=== PATIENT | male | born 1955 | race Caucasian/White ===

== ENCOUNTER 2018-04-30 15:20 | Emergency (ER) | payer MEDICARE, BC ==
--- NOTE | 2018-04-30 15:44 | EDM.PDOC ---
ED HPI GENERAL MEDICAL PROBLEM - General Chief Complaint: Abdominal Pain Stated Complaint: RIGHT SIDE PAIN Time Seen by Provider: 04/30/18 15:43 Source of Information: Reports: Patient History Limitations: Reports: No Limitations - History of Present Illness INITIAL COMMENTS - FREE TEXT/NARRATIVE: 62-year-old male presents to the ED with right lower quadrant abdominal pain. Patient states that he's had right obed-abdominal discomfort off and on for the last day and a half. No associated fever chills, nausea or vomiting. He did have one loose stool today. Pain radiates up towards the right back/flank. No blood noted. The last 2 hours the pain in the right lower quadrant has increased substantially. It's not bad enough to make him nauseated or vomit. In fact appetite is quite good he ate at about 1500 hrs. today. He has no feeling of need to void or defecate. He has a past history of kidney stones 2 on the right side. He has not noticed any blood in his urine today. Currently pain is rated as 5 out of 10. He appears uncomfortable. 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 Onset: Gradual (Over the last 48 hours with worsening of the pain in the last 2 hours.) Onset Date: 04/29/18 Duration: Hour(s): (Pain is been much more intense over the last 2 hours right lower quadrant of the abdomen.) Location: Reports: Abdomen (Right lower quadrant rating up towards his right flank.) Quality: Reports: Ache, Other (Pain was colicky in nature and mild prior to the last 2 hours were is much more constant and severe.) Severity: Moderate Improves with: Reports: None (Currently rates the pain is 5 out of 10.) Worsens with: Reports: None Context: Denies: Activity, Exercise, Lifting, Sick Contact, Trauma Associated Symptoms: Reports: Other. 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 After him with a dense right-sided hemiparesis. Cause was never identified.) Psychiatric History: Reports: Anxiety, Depression - Past Surgical History GI Surgical History: Reports: Cholecystectomy Neurological Surgical History: Reports: Lumbar Spine Social & Family History - Tobacco Use Smoking Status *Q: Never Smoker - Living Situation & Occupation Living situation: Reports: , Other Occupation: Employed ED ROS GENERAL - Review of Systems Review Of Systems: See Below Constitutional: Denies: Fever, Chills, Malaise, Weakness, Fatigue, Decreased Appetite, Weight Loss HEENT: Reports: Glasses Respiratory: Reports: No Symptoms Cardiovascular: Reports: No Symptoms Endocrine: Reports: No Symptoms GI/Abdominal: Reports: Abdominal Pain, Diarrhea (See history of present illness one loose diarrhea stool today.) : Reports: No Symptoms Musculoskeletal: Reports: Back Pain, Joint Pain Skin: Reports: No Symptoms (Right knee pain at times) Neurological: Reports: Difficulty Walking (Chronically due to right-sided hemiparesis from a stroke at age 41. Has flexion contracture at the elbow and wrist right arm.), Other Psychiatric: Reports: No Symptoms ED EXAM, GI/ABD - Physical Exam Exam: See Below Exam Limited By: No Limitations General Appearance: Alert, WD/WN, Mild Distress (He appears to be a moderately discomfort.) Eyes: Bilateral: Normal Appearance Throat/Mouth: Normal Inspection, Normal Lips, Normal Oropharynx Respiratory/Chest: No Respiratory Distress, Lungs Clear, Normal Breath Sounds, No Accessory Muscle Use, Other (Appreciated gurgling bowel sounds up in his anterior chest as well.) Cardiovascular: Normal Peripheral Pulses, Regular Rate, Rhythm, No Edema, No Gallop, No Murmur GI/Abdominal Exam: Soft, Non-Tender, No Organomegaly, No Distention, No Abnormal Bruit, No Mass, Pelvis Stable, Abnormal Bowel Sounds (Diffusely hyperactive bowel sounds.), Other (No surgical scars). No: Distended (Male) Exam: No Hernia Back Exam: Normal Inspection, Full Range of Motion. No: CVA Tenderness (L), CVA Tenderness (R) Extremities: Normal Inspection, Normal Range of Motion, Non-Tender, No Pedal Edema Neurological: Alert, Oriented, CN II-XII Intact, Normal Cognition, Abnormal Gait (Previous CVA with right-sided hemiparesis impairs his gait.) Psychiatric: Normal Affect, Anxious Skin Exam: Warm, Dry, Intact (Mildly anxious), Normal Color, No Rash Course - Vital Signs Last Recorded V/S: Last Vital Signs Temp 37.1 C 04/30/18 17:05 Pulse 64 04/30/18 17:05 Resp 16 04/30/18 17:05 BP 117/75 04/30/18 17:05 Pulse Ox 95 04/30/18 17:05 - Orders/Labs/Meds Orders: Active Orders 24 hr Category Date Time Status Abdomen 1V Flat [CR] Stat Exams 04/30/18 15:51 Taken Dextrose 5%-0.9% NaCl [Dextrose 5%-Normal Saline] 1,000 Med 04/30/18 16:00 Active ml IV ASDIRECTED Medication Orders Dextrose/Sodium Chloride (Dextrose 5%-Normal Saline) 1,000 mls @ 150 mls/hr IV ASDIRECTED YURIY Last Admin: 04/30/18 16:01 Dose: 150 mls/hr Labs: Laboratory Tests 04/30/18 04/30/18 Range/Units 16:12 16:12 WBC 4.96 (4.23-9.07) K/mm3 RBC 5.22 (4.63-6.08) M/mm3 Hgb 15.4 (13.7-17.5) gm/L Hct 45.8 (40.1-51.0) % MCV 87.7 (79.0-92.2) fl MCH 29.5 (25.7-32.2) pg MCHC 33.6 (32.2-35.5) g/dl RDW Std Deviation 43.6 (35.1-43.9) fL Plt Count 194 (163-337) K/mm3 MPV 11.8 (9.4-12.3) fl Neutrophils % (Manual) 68 H (40-60) % Band Neutrophils % 0 (0-10) % Lymphocytes % (Manual) 18 L (20-40) % Atypical Lymphs % 0 % Monocytes % (Manual) 11 H (2-10) % Eosinophils % (Manual) 3 (0.8-7.0) % Basophils % (Manual) 0 L (0.2-1.2) Platelet Estimate Adequate Plt Morphology Comment Normal RBC Morph Comment Normal Sodium 142 (136-145) mEq/L Potassium 3.7 (3.5-5.1) mEq/L Chloride 107 (98-107) mEq/L Carbon Dioxide 27 (21-32) mEq/L Anion Gap 11.7 (5-15) BUN 17 (7-18) mg/dL Creatinine 1.6 H (0.7-1.3) mg/dL Est Cr Clr Drug Dosing 51.87 mL/min Estimated GFR (MDRD) 44 (>60) mL/min BUN/Creatinine Ratio 10.6 L (14-18) Glucose 133 H (80-115) mg/dL Calcium 8.6 (8.5-10.1) mg/dL Magnesium 2.2 (1.8-2.4) mg/dl Total Bilirubin 0.5 (0.2-1.0) mg/dL AST 14 L (15-37) U/L ALT 23 (16-63) U/L Alkaline Phosphatase 79 (46-116) U/L C-Reactive Protein < 0.2 (<1.0) mg/dL Total Protein 6.9 (6.4-8.2) g/dl Albumin 3.7 (3.4-5.0) g/dl Globulin 3.2 gm/dL Albumin/Globulin Ratio 1.2 (1-2) Meds: Medications Generic Name Dose Route Start Last Admin Trade Name Freq PRN Reason Stop Dose Admin Dextrose/Sodium Chloride 1,000 mls @ 150 mls/hr 04/30/18 16:00 04/30/18 16:01 Dextrose 5%-Normal Saline IV 150 mls/hr ASDIRECTED YURIY Administration Discontinued Medications Generic Name Dose Route Start Last Admin Trade Name Freq PRN Reason Stop Dose Admin Hydromorphone HCl 0.5 mg 04/30/18 15:52 04/30/18 16:01 Dilaudid IVPUSH 04/30/18 15:53 0.5 mg ONETIME ONE Administration Ondansetron HCl 4 mg 04/30/18 15:53 04/30/18 16:01 Zofran IVPUSH 04/30/18 15:54 4 mg ONETIME ONE Administration - Radiology Interpretation Free Text/Narrative:: 62-year-old male presents to the ED with right-sided abdominal pain. States she' s been having some discomfort in this area for the last 2 days. However in the last 2 hours the pain has become much worse and constant whereas before was coming and going. He describes the pain currently is 5 out of 10. His primarily in his right lower quadrant. He has no associated signs or symptoms of kidney stone with nausea vomiting or feeling of need to void or defecate. However he has a renal colic with stones twice on the right side in the past. Sure if he doesn't feel that normally because of his is CVA with right-sided hemiparesis. Abdomen is otherwise benign other than very active bowel sounds throughout. He had one loose stool earlier today. No blood noted. Plan IV D5 normal saline at 150 mils per hour. Dilaudid 0.5 mg IV with Zofran 4 mg IV. Routine labs ordered including a CRP and a KUB - Re-Assessments/Exams Free Text/Narrative Re-Assessment/Exam: 04/30/18 16:36 KUB reveals increased air throughout the large bowel and the considerable portion of the small bowel. There is no evidence of bowel obstruction. His pain is pretty well gone. He has not yet been able to void. Only his hematology is back and he has a low white count at 4.96. Therefore I presume he may well have a kidney stone and will ask CT to come back or CT of the abdomen and pelvis per renal protocol. 04/30/18 16:57 Labs are coming back. White count is 4.96 with 60% neutrophils and no bands reported. Hemoglobin is 15.4 with hematocrit of 45.8. Platelet count is 194,000. Sodium is 142 with a potassium of 3.7. Toward 107 with a bicarbonate of 27. Anion gap is normal 11.7. BUNs 17 with a creatinine of 1.6. GFR is 44. Glucose is 133. Calcium 8.6. Magnesium 2.2. Liver function normal. CRP less than 0.2. 04/30/18 17:37 CT scan of the abdomen and pelvis has been completed. It reveals a stomach filled with food. Pancreas appears to be normal. Liver is normal with evidence of previous cholecystectomy. Patient omitted this in his history. There is increased stool throughout the right hemicolon which I suspect is causing his pain. The appendix is well defined with no signs of her periappendiceal inflammation. There are several diverticula throughout the sigmoid colon without any active diverticulitis. Abdominal aorta shows sparse calcifications. Both kidneys are visualized with a 1-2 mm stone within the right renal parenchyma. There is a 1.3 cm cyst in the midpole of the left kidney without any stones. There is no ureteral dilated dictation. There are several phleboliths. Patient's pain is therefore most likely due to is stool- filled cecum. I will provide him with Citroma 6 ounces by mouth to be taken once to provide bowel cleanse. Departure - Departure Time of Disposition: 17:43 Disposition: Home, Self-Care 01 Condition: Fair Clinical Impression: Constipation by delayed colonic transit Abdominal pain Qualifiers: Abdominal location: right lower quadrant Qualified Code(s): R10.31 - Right lower quadrant pain - Discharge Information *PRESCRIPTION DRUG MONITORING PROGRAM REVIEWED*: Not Applicable *COPY OF PRESCRIPTION DRUG MONITORING REPORT IN PATIENT JACK: Not Applicable Instructions: Constipation, Adult Referrals: Perfecto Diop MD [Primary Care Provider] - Forms: ED Department Discharge Additional Instructions: Evaluation in the emergency room today in regards to increasing right-sided abdominal pain. This particularly bad the last 2 hours with a strong constant colicky pain in the right lower quadrant. Examination did not suggest anything such as appendicitis or underlying infection. Sounds were found to be very active in all 4 quadrants of the abdomen suggesting the bowels working hard to push something along. Plain films of the abdomen were done but they revealed a large amount of air throughout the bowel including parts of the small bowel. They did not show any evidence of kidney stone. Since you're unable to void we proceeded with CT scan of the abdomen to rule out a kidney stone. No kidney stones were identified to be blocking the ureters are causing your pain. There is a small 1-2 mm stone in the tissue of the right kidney that may become problematic in the future. There are no stones in the left kidney. No other abdomen maladies were appreciated on the CT in terms of solid organs. However the right lower large bowel called the cecum contains a large amount of stool which is acting as a plug. Causing your current pain as ears 21 feet of small bowel trying to push this plug along. This likely occurred due to the hot weather over the last several days. You become mildly dehydrated and still has formed to solid prematurely in the right colon instead of the left colon. Treatment is to take magnesium citrate or we call it Citroma 6 ounces by mouth next with 4-5 ounces of juice once. This usually starts to work in 1-2 hours and will make her bowels move 3 or 4 times tonight. This should provide relief of the abdominal pain. Weather changes to medications are to be made at this time. Try to increase increase her fluid intake over the summer months particularly on hot days with Gatorade or Powerade etc. Of course return to medical care if not markedly improved after bowel cleanse. - My Orders Last 24 Hours: My Active Orders 04/30/18 15:51 Abdomen 1V Flat [CR] Stat 04/30/18 16:00 Dextrose 5%-0.9% NaCl [Dextrose 5%-Normal Saline] 1,000 ml IV ASDIRECTED - Assessment/Plan Last 24 Hours: My Active Orders 04/30/18 15:51 Abdomen 1V Flat [CR] Stat 04/30/18 16:00 Dextrose 5%-0.9% NaCl [Dextrose 5%-Normal Saline] 1,000 ml IV ASDIRECTED
[2018-04-30] MEDS ORDERED: HYDROmorphone 0.5 MG/0.5 ML SYRINGE IVPUSH ONE (15:52)
[2018-04-30] MEDS ORDERED: Ondansetron 4 MG/2 ML SDV IVPUSH ONE (15:53)
[2018-04-30] MEDS ORDERED: Dextrose 5%-0.9% NaCl 1,000 ML IV SCH (16:00)
--- NOTE | 2018-04-30 17:22 | CT ---
CT abdomen and pelvis Technique: Multiple axial sections were obtained from above the kidneys inferiorly through the pubic symphysis. Intravenous and oral contrast was not utilized. Study has been performed as a ureteral stone protocol. Comparison: Previous CT exam of 12/16/11. Findings: Left kidney shows no abnormal calcifications. Cyst is identified within the left kidney which is similar to prior exam measuring around 1.3 cm. There is a small calcification within the mid to upper right kidney which is an interval change from previous exam measuring 1.2 mm in size. Prior CT exam showed a 1 cm calcification which is no longer seen within the left kidney. No ureteral dilatation is seen. No ureteral calculi are seen. Other findings: Visualized lung bases are clear. Noncontrast appearance of the spleen appears within normal limits. Noncontrast appearance of the visualized lower liver appears unremarkable. Surgical clips are seen from prior cholecystectomy. Adrenal glands show no nodule. Pancreas shows no discrete abnormality. Abdominal aorta shows atherosclerotic change without aneurysm. No retroperitoneal adenopathy or mesenteric abnormalities are seen. Appendix is seen which is normal in size. No pelvic mass or adenopathy is seen. No inflammatory change or free fluid is seen. Incidental fat-containing left inguinal hernia is noted. Diverticuli are seen within the sigmoid and descending colon without findings of diverticulitis. No bowel wall thickening or bowel dilatation is seen. Bone window settings were reviewed which shows vacuum phenomena within the L2-3 and L5-S1 disc. Scattered endplate osteophytes are seen. Impression: 1. Small nonobstructing stone within the right kidney. Incidental left renal cyst is seen. No ureteral dilatation or ureteral stone is seen. 2. Diverticuli within the sigmoid and descending colon without diverticulitis. 3. Other incidental findings as noted above. Note: No etiology is identified to explain the patient's right lower quadrant abdominal pain. Diagnostic code #2
[2018-04-30] MEDS ORDERED: Magnesium Citrate Solution 296 ML Bottle PO ONE (17:43)
[2018-04-30 18:02] VITALS: BP 99/62
--- NOTE | 2018-05-01 10:01 | CR ---
Abdomen: Supine view of the abdomen was obtained. Comparison: No prior abdominal x-ray. Calcifications seen within the pelvis compatible with phleboliths. Surgical clips are seen from prior cholecystectomy. Bowel gas pattern appears normal. Mild scattered degenerative endplate spurring is noted within the spine. Impression: 1. Nothing acute is appreciated on supine abdominal x-ray. Diagnostic code #2
== END 2018-04-30 18:00 | disposition home or self-care (01) ==
LOC: JD.ED 15:20
DX: K59.01 Slow transit constipation (principal); K21.9 Gastro-esophageal reflux disease without esophagitis; Z87.442 Personal history of urinary calculi
CPT/HCPCS: 36415; 74018; 74176; 80053; 83735; 85007; 85027; 86140; 96361; 96374; 96375; 99285; A9270; J1170; J2405; J7042; 99284

== ENCOUNTER 2019-08-02 18:08 | Emergency (ER) | payer MEDICARE, BC ==
[2019-08-02 18:35] VITALS: BP 133/72; PULSE 67
[2019-08-02] MEDS ORDERED: Diphtheria,Pertussis(Acell),Tetanus Vaccine 0.5 ML Syringe IM ONE (18:46)
[2019-08-02] MEDS ORDERED: Lidocaine 1% 10 ML MDV INJECT ONE (18:46)
--- NOTE | 2019-08-02 18:47 | EDM.PDOC ---
<Chele James Pedro Luis - Last Filed: 08/02/19 19:14> ED HPI GENERAL MEDICAL PROBLEM - General Chief Complaint: Laceration Stated Complaint: L RING FINGER LAC Time Seen by Provider: 08/02/19 18:44 Source of Information: Reports: Patient History Limitations: Reports: No Limitations - History of Present Illness INITIAL COMMENTS - FREE TEXT/NARRATIVE: 64-year-old male presents the ED with a crush type injury with an open laceration to the volar aspect of his left fourth finger. This occurred about 1430 hrs. today. Garage door panel came down and slammed his distal fourth finger Matter when his last tetanus toxoid was updated. He got the bleeding to stop with direct pressure. He has a flap laceration to the volar aspect of the distal phalanx. No subungual hematoma. Onset: Today Onset Date: 08/02/19 Onset Time: 14:30 Duration: Hour(s): Location: Reports: Upper Extremity, Left (Distal left volar fourth finger.) Quality: Reports: Ache, Throbbing Severity: Mild Improves with: Reports: None Worsens with: Reports: None Context: Reports: Trauma. 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) (None.) Left Finger-Middle Pain Score (Numeric/FACES): 3 - Related Data Allergies Allergy/AdvReac Type Severity Reaction Status Date / Time No Known Allergies Allergy Verified 12/22/16 08:37 Home Meds: Home Meds Aspirin [Halfprin] 81 mg PO DAILY 04/30/18 [History] PARoxetine HCl [Paxil] 20 mg PO DAILY 04/30/18 [History] Past Medical History Gastrointestinal History: Reports: GERD Genitourinary History: Reports: Renal Calculus Musculoskeletal History: Reports: Osteoarthritis Neurological History: Reports: CVA Psychiatric History: Reports: Anxiety, Depression - Past Surgical History GI Surgical History: Reports: Cholecystectomy Neurological Surgical History: Reports: Lumbar Spine Social & Family History - Tobacco Use Smoking Status *Q: Never Smoker - Caffeine Use Caffeine Use: Reports: Coffee - Recreational Drug Use Recreational Drug Use: No - Living Situation & Occupation Living situation: Reports: , Other Occupation: Employed ED ROS GENERAL - Review of Systems Review Of Systems: See Below Constitutional: Reports: No Symptoms HEENT: Reports: No Symptoms Respiratory: Reports: No Symptoms Cardiovascular: Reports: No Symptoms Endocrine: Reports: No Symptoms GI/Abdominal: Reports: No Symptoms : Reports: No Symptoms Musculoskeletal: Reports: Back Pain, Joint Pain (Knees hips low back and neck at times.) Skin: Reports: Other (2 Regina (laceration distal aspect of volar left fourth finger that occurred today.) Neurological: Reports: No Symptoms Psychiatric: Reports: Depression (Controlled with Paxil daily.) Hematologic/Lymphatic: Reports: No Symptoms Immunologic: Reports: No Symptoms ED EXAM, SKIN/RASH Exam: See Below Exam Limited By: No Limitations General Appearance: Alert, WD/WN Course - Vital Signs Last Recorded V/S: Last Vital Signs Temp 97.4 F 08/02/19 18:32 Pulse 67 08/02/19 18:32 Resp 20 08/02/19 18:32 BP 133/72 08/02/19 18:32 Pulse Ox 93 L 08/02/19 18:32 - Orders/Labs/Meds Orders: Active Orders 24 hr Category Date Time Status Vaccines to be Administered [RC] PER UNIT ROUTINE Care 08/02/19 18:47 Active Fingers Fourth Digit Lt F3 [CR] Stat Exams 08/02/19 18:44 Taken Meds: Medications Discontinued Medications Generic Name Dose Route Start Last Admin Trade Name Freq PRN Reason Stop Dose Admin Diphtheria/Tetanus/Acell Pertussis 0.5 ml 08/02/19 18:46 08/02/19 19:13 Adacel IM 08/02/19 18:47 0.5 ml .ONCE ONE Administration Lidocaine HCl 10 ml 08/02/19 18:46 08/02/19 19:14 Xylocaine 1% INJECT 08/02/19 18:47 10 ml ONETIME ONE Administration Departure - Departure Disposition: Home, Self-Care 01 Clinical Impression: Laceration of left ring finger Qualifiers: Encounter type: initial encounter Damage to nail status: without damage Foreign body presence: without foreign body Qualified Code(s): S61.215A - Laceration without foreign body of left ring finger without damage to nail, initial encounter - Discharge Information Referrals: PCP,None [Primary Care Provider] - Forms: ED Department Discharge Additional Instructions: Soak your finger in warm soapy water 2 times per day and apply antibiotic ointment after. Have the sutures remove in 1 week. Look for any signs of infection such as redness, swelling, pain or drainage. If you see any of these signs, please return of see your doctor. You may need oral antibiotics. <Hebert Lyons - Last Filed: 08/02/19 19:29> ED SKIN PROCEDURES - Laceration/Wound Repair Left Digit - 4th (Ring) Appearance: Subcutaneous, Irregular Distal NVT: Neuro & Vascular Intact, No Tendon Injury Anesthetic Type: Digital Local Anesthesia - Lidocaine (Xylocaine): 1% Plain Skin Prep: Saline Exploration/Debridement/Repair: Wound Explored, In a Bloodless Field, Explored to Base Closed with: Sutures Lac/Wound length In cm: 1 Suture Size: 4-0 # of Sutures: 5 Suture Type: Nylon, Interrupted, Simple Tetanus Status Addressed: Yes Complications: No Course - Re-Assessments/Exams Free Text/Narrative Re-Assessment/Exam: 08/02/19 19:[address] James. The x-ray showed no fracture. I sutured the laceration closed with 5 sutures. 08/02/19 19:27 His tetanus was updated. Departure - Departure Time of Disposition: 19:30 Condition: Good - Discharge Information *PRESCRIPTION DRUG MONITORING PROGRAM REVIEWED*: No *COPY OF PRESCRIPTION DRUG MONITORING REPORT IN PATIENT JACK: No
--- NOTE | 2019-08-03 07:13 | CR ---
Fourth finger: Four views of the 4th finger were obtained. Comparison: No previous study. Slight joint space narrowing is noted within the DIP joints. Soft tissue injury appears to be present within the 4th finger. No fracture or other bony abnormality is seen. Impression: 1. Mild degenerative change. Probable soft tissue injury. 2. No acute bony abnormality is seen on left 4th finger exam. Diagnostic code #2
== END 2019-08-02 19:40 | disposition home or self-care (01) ==
LOC: JD.ED 18:08
DX: S61.215A Laceration without foreign body of left ring finger without damage to nail, initial encounter (principal); F32.9 Major depressive disorder, single episode, unspecified; Z79.82 Long term (current) use of aspirin; Z23 Encounter for immunization; Z79.899 Other long term (current) drug therapy; W23.0XXA Caught, crushed, jammed, or pinched between moving objects, initial encounter
CPT/HCPCS: 12001; 73140; 90471; 90700; 99283; J2001; 99282

== ENCOUNTER 2019-11-01 14:10 | Emergency (ER) | payer MEDICARE, BC ==
[2019-11-01 14:21] VITALS: PULSE 66
[2019-11-01] MEDS ORDERED: Sodium Chloride 0.9% 10 ML Syringe FLUSH PRN (14:33)
--- NOTE | 2019-11-01 15:02 | EDM.PDOC ---
ED HPI GENERAL MEDICAL PROBLEM - General Chief Complaint: Chest Pain Stated Complaint: CHEST PAIN Time Seen by Provider: 11/01/19 14:33 Source of Information: Reports: Patient, RN Notes Reviewed History Limitations: Reports: No Limitations - History of Present Illness INITIAL COMMENTS - FREE TEXT/NARRATIVE: Patient is a 64-year-old male who presents to the ED for the evaluation of mid central chest pain. He notes this started around 7 AM this morning, he states this is kind of a dull pressure type pain, and intermittent in nature. He notes that it radiates into his jaw and up his left chest as well. He denies any sort of nausea/vomiting/diarrhea, any fevers or chills, or any other sick- like symptoms, he further denies any sort of diaphoresis. He states he was feeling well up until this pain started. He does note a positive history for a prior stroke, 20 years ago, with some residual right-sided weakness. The present in the room states that this is not more increased than his normal state. His primary care provider is Dr. Diop. He notes he is not a smoker , but he does drink alcohol and use some marijuana from time to time. He does have a positive history for GERD. 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 (81mg this AM at onset) Chest Pain Score (Numeric/FACES): 4 - Related Data Allergies Allergy/AdvReac Type Severity Reaction Status Date / Time No Known Allergies Allergy Verified 11/01/19 14:21 Home Meds: Home Meds Aspirin [Halfprin] 81 mg PO DAILY 04/30/18 [History] PARoxetine HCl [Paxil] 20 mg PO DAILY 04/30/18 [History] Past Medical History HEENT History: Reports: Impaired Vision Gastrointestinal History: Reports: GERD Genitourinary History: Reports: Renal Calculus Musculoskeletal History: Reports: Osteoarthritis Neurological History: Reports: CVA (with residual right sided weakness, early ) Psychiatric History: Reports: Anxiety, Depression - Past Surgical History GI Surgical History: Reports: Cholecystectomy Neurological Surgical History: Reports: Lumbar Spine Social & Family History - Family History Family Medical History: Noncontributory - Tobacco Use Smoking Status *Q: Never Smoker Second Hand Smoke Exposure: Yes - Caffeine Use Caffeine Use: Reports: Coffee - Alcohol Use Alcohol Use History: Yes Alcohol Use Frequency: Weekly - Recreational Drug Use Recreational Drug Use: Yes Recreational Drug Type: Reports: Marijuana/Hashish Recreational Drug Use Frequency: Weekly - Living Situation & Occupation Living situation: Reports: , Other Occupation: Employed ED ROS GENERAL - Review of Systems Review Of Systems: See Below Constitutional: Denies: Fever, Chills, Malaise, Diaphoresis Respiratory: Denies: Shortness of Breath Cardiovascular: Reports: Chest Pain (central chest pain). Denies: Blood Pressure Problem, Edema, Orthopnea, Palpitations GI/Abdominal: Denies: Abdominal Pain, Diarrhea, Nausea, Vomiting Musculoskeletal: Reports: Arm Pain (L arm). Denies: Back Pain Neurological: Reports: Pre-Existing Deficit (R sided weakness). Denies: Numbness, Tingling Psychiatric: Denies: Confusion ED EXAM, GENERAL - Physical Exam Exam: See Below Exam Limited By: No Limitations General Appearance: Alert, WD/WN, No Apparent Distress Eye Exam: Bilateral Eye: EOMI, Normal Inspection, PERRL Ears: Normal External Exam Nose: Normal Inspection Throat/Mouth: Normal Inspection, Normal Lips, Normal Teeth, Normal Gums, Normal Oropharynx, Normal Voice, No Airway Compromise Head: Atraumatic, Normocephalic Neck: Normal Inspection Respiratory/Chest: No Respiratory Distress, Lungs Clear, Normal Breath Sounds, No Accessory Muscle Use, Chest Non-Tender Cardiovascular: Normal Peripheral Pulses, Regular Rate, Rhythm, No Murmur Peripheral Pulses: 3+: Radial (L), Radial (R) GI/Abdominal: Normal Bowel Sounds, Soft, Non-Tender, No Distention, No Mass Extremities: Normal Inspection, Normal Capillary Refill Neurological: Alert, Oriented, Normal Cognition, Sensory/Motor Deficit (R sided weakness, not increased from baseline) Psychiatric: Normal Affect, Normal Mood Skin Exam: Warm, Dry, Intact, Normal Color, No Rash EKG INTERPRETATION EKG Date: 11/01/19 Time: 14:34 Rhythm: NSR Rate (Beats/Min): 62 [place]: Normal P-Wave: Present QRS: Normal ST-T: Normal QT: Normal Comparison: NA - No Prior EKG EKG Interpretation Comments: No acute ischemic change. This was reviewed by myself and Dr. Hardwick. Course - Vital Signs Last Recorded V/S: Last Vital Signs Temp 97.8 F 11/01/19 14:16 Pulse 66 11/01/19 14:16 Resp 20 11/01/19 14:16 BP 132/66 11/01/19 14:16 Pulse Ox 97 11/01/19 14:16 - Orders/Labs/Meds Orders: Active Orders 24 hr Category Date Time Status EKG Documentation Completion [RC] ASDIRECTED Care 11/01/19 14:25 Active Influenza Vaccine Charge [RC] .DISCHARGE Care 11/01/19 14:24 Active Peripheral IV Care [RC] . DIRECTED Care 11/01/19 14:34 Ordered Sodium Chloride 0.9% [Saline Flush] Med 11/01/19 14:33 Ordered 10 ml FLUSH ASDIRECTED PRN Peripheral IV Insertion Adult [OM.PC] Stat Oth 11/01/19 14:33 Ordered EKG 12 Lead [EK] Stat Ther 11/01/19 14:24 Ordered Medication Orders Sodium Chloride (Saline Flush) 10 ml FLUSH ASDIRECTED PRN PRN Reason: Keep Vein Open Labs: Laboratory Tests 11/01/19 11/01/19 11/01/19 Range/Units 14:45 14:45 14:45 WBC 6.24 (4.23-9.07) K/mm3 RBC 5.43 (4.63-6.08) M/mm3 Hgb 16.1 (13.7-17.5) gm/dl Hct 48.5 (40.1-51.0) % MCV 89.3 (79.0-92.2) fl MCH 29.7 (25.7-32.2) pg MCHC 33.2 (32.2-35.5) g/dl RDW Std Deviation 44.0 H (35.1-43.9) fL Plt Count 219 (163-337) K/mm3 MPV 11.7 (9.4-12.3) fl Neutrophils % (Manual) 56 (40-60) % Band Neutrophils % 0 (0-10) % Lymphocytes % (Manual) 39 (20-40) % Atypical Lymphs % 0 % Monocytes % (Manual) 3 (2-10) % Eosinophils % (Manual) 2 (0.8-7.0) % Basophils % (Manual) 0 L (0.2-1.2) Toxic Granulation See note Platelet Estimate Adequate Plt Morphology Comment Normal RBC Morph Comment Normal PT 10.6 (9.7-12.0) SECONDS INR 0.97 APTT 25 (22-31) SECONDS Sodium 141 (136-145) mEq/L Potassium 3.8 (3.5-5.1) mEq/L Chloride 104 (98-107) mEq/L Carbon Dioxide 26 (21-32) mEq/L Anion Gap 14.8 (5-15) BUN 19 H (7-18) mg/dL Creatinine 1.5 H (0.7-1.3) mg/dL Est Cr Clr Drug Dosing 53.89 mL/min Estimated GFR (MDRD) 47 (>60) mL/min BUN/Creatinine Ratio 12.7 L (14-18) Glucose 132 H (80-115) mg/dL Calcium 8.8 (8.5-10.1) mg/dL Magnesium 2.2 (1.8-2.4) mg/dl Total Bilirubin 0.5 (0.2-1.0) mg/dL AST 16 (15-37) U/L ALT 32 (16-63) U/L Alkaline Phosphatase 70 (46-116) U/L Troponin I < 0.017 (0.00-0.056) ng/mL NT-Pro-B Natriuret Pep (0-125) pg/mL Total Protein 7.1 (6.4-8.2) g/dl Albumin 3.7 (3.4-5.0) g/dl Globulin 3.4 gm/dL Albumin/Globulin Ratio 1.1 (1-2) 11/01/19 Range/Units 14:45 WBC (4.23-9.07) K/mm3 RBC (4.63-6.08) M/mm3 Hgb (13.7-17.5) gm/dl Hct (40.1-51.0) % MCV (79.0-92.2) fl MCH (25.7-32.2) pg MCHC (32.2-35.5) g/dl RDW Std Deviation (35.1-43.9) fL Plt Count (163-337) K/mm3 MPV (9.4-12.3) fl Neutrophils % (Manual) (40-60) % Band Neutrophils % (0-10) % Lymphocytes % (Manual) (20-40) % Atypical Lymphs % % Monocytes % (Manual) (2-10) % Eosinophils % (Manual) (0.8-7.0) % Basophils % (Manual) (0.2-1.2) Toxic Granulation Platelet Estimate Plt Morphology Comment RBC Morph Comment PT (9.7-12.0) SECONDS INR APTT (22-31) SECONDS Sodium (136-145) mEq/L Potassium (3.5-5.1) mEq/L Chloride (98-107) mEq/L Carbon Dioxide (21-32) mEq/L Anion Gap (5-15) BUN (7-18) mg/dL Creatinine (0.7-1.3) mg/dL Est Cr Clr Drug Dosing mL/min Estimated GFR (MDRD) (>60) mL/min BUN/Creatinine Ratio (14-18) Glucose (80-115) mg/dL Calcium (8.5-10.1) mg/dL Magnesium (1.8-2.4) mg/dl Total Bilirubin (0.2-1.0) mg/dL AST (15-37) U/L ALT (16-63) U/L Alkaline Phosphatase (46-116) U/L Troponin I (0.00-0.056) ng/mL NT-Pro-B Natriuret Pep 62 (0-125) pg/mL Total Protein (6.4-8.2) g/dl Albumin (3.4-5.0) g/dl Globulin gm/dL Albumin/Globulin Ratio (1-2) Meds: Medications Generic Name Dose Route Start Last Admin Trade Name Freq PRN Reason Stop Dose Admin Sodium Chloride 10 ml 11/01/19 14:33 Saline Flush FLUSH ASDIRECTED PRN Keep Vein Open Discontinued Medications Generic Name Dose Route Start Last Admin Trade Name Freq PRN Reason Stop Dose Admin Al Hydroxide/Mg Hydroxide 30 0 ml 11/01/19 15:40 ml/ Lidocaine HCl 15 ml PO 11/01/19 15:41 ONETIME ONE Influenza Virus Vaccine 1 each 11/01/19 14:24 Pharmacy To Dose - Influenza Vaccine IM 11/01/19 14:25 ONETIME ONE Influenza Virus Vaccine 180 mcg 11/01/19 14:45 Fluzone High-Dose Syringe IM 11/01/19 14:46 .ONCE ONE - Re-Assessments/Exams Free Text/Narrative Re-Assessment/Exam: 11/01/19 15:03 Patient presents to the ED for the evaluation of mid central chest pain. EKG was obtained at time of triage, and demonstrates no acute sign of any ischemic change. Will order laboratory evaluation to include CBC, CMP, troponin, magnesium, BNP, coagulation studies and a chest x-ray for further evaluation. He does note a prior history of GERD, so very likely could be due to that. 11/01/19 15:39 Preliminary labs are back, and are essentially within normal limits, troponin is negative. At this time I will have the patient treat symptoms as heartburn and see if this does not help relieve some of his symptoms. Departure - Departure Time of Disposition: 16:06 Disposition: Home, Self-Care 01 Condition: Fair Clinical Impression: Central chest pain Instructions: Nonspecific Chest Pain, [id number] Referrals: Perfecto Diop MD [Primary Care Provider] - Forms: ED Department Discharge Additional Instructions: Your evaluated in the ER today regarding your central chest pain. You had a cardiac work-up done to rule out any sort of acute ischemia. This was all negative. EKG looks to be within normal limits. All other lab work was essentially within normal limits as well. You were given a GI cocktail to help treat symptoms of suspected heartburn, as you state he had a history of GERD. Review of your medication list demonstrates that you are not on any sort of acid chief of hospital medicine, recommend that you start taking Prilosec (omeprazole), 40 mg daily to see if this does not help relieve some of your symptoms. Please return to the ER at any time if your symptoms change or worsen. Sepsis Event Note - Evaluation Sepsis Screening Result: No Definite Risk - Focused Exam Vital Signs: Vital Signs Temp Pulse Resp BP Pulse Ox 11/01/19 14:16 97.8 F 66 20 132/66 97 Date Exam was Performed: 11/01/19 Time Exam was Performed: 16:06 - My Orders Last 24 Hours: My Active Orders 11/01/19 14:24 Influenza Vaccine Charge [RC] .DISCHARGE EKG 12 Lead [EK] Stat 11/01/19 14:25 EKG Documentation Completion [RC] ASDIRECTED 11/01/19 14:33 Sodium Chloride 0.9% [Saline Flush] 10 ml FLUSH ASDIRECTED PRN Peripheral IV Insertion Adult [OM.PC] Stat 11/01/19 14:34 Peripheral IV Care [RC] . DIRECTED - Assessment/Plan Last 24 Hours: My Active Orders 11/01/19 14:24 Influenza Vaccine Charge [RC] .DISCHARGE EKG 12 Lead [EK] Stat 11/01/19 14:25 EKG Documentation Completion [RC] ASDIRECTED 11/01/19 14:33 Sodium Chloride 0.9% [Saline Flush] 10 ml FLUSH ASDIRECTED PRN Peripheral IV Insertion Adult [OM.PC] Stat 11/01/19 14:34 Peripheral IV Care [RC] . DIRECTED
--- NOTE | 2019-11-01 15:39 | CR ---
Chest: Portable view of the chest was obtained. Comparison: No prior chest imaging. Right hemidiaphragm is elevated which is felt to be chronic. Lungs show no acute parenchymal change. Heart size is within normal limits. Upper mediastinum is within normal limits. Bony structures are grossly intact. Impression: 1. Chronic elevated right hemidiaphragm. 2. Nothing acute is otherwise seen on portable chest x-ray. Diagnostic code #2 This report was dictated in [place] Standard Time
[2019-11-01] MEDS ORDERED: Alum Hydrox/Mag Hydrox/Simeth 30 ML, Lidocaine 2% 15 ML PO ONE ×2 (15:40)
[2019-11-01 16:21] VITALS: BP 127/68
== END 2019-11-01 16:21 | disposition home or self-care (01) ==
LOC: JD.ED 14:10
DX: R07.9 Chest pain, unspecified (principal); M19.90 Unspecified osteoarthritis, unspecified site; F41.9 Anxiety disorder, unspecified; F32.9 Major depressive disorder, single episode, unspecified; Z86.73 Personal history of transient ischemic attack (TIA), and cerebral infarction without residual deficits; Z79.82 Long term (current) use of aspirin; Z77.22 Contact with and (suspected) exposure to environmental tobacco smoke (acute) (chronic); Z79.899 Other long term (current) drug therapy
CPT/HCPCS: 36415; 71045; 80053; 83735; 83880; 84484; 85007; 85027; 85610; 85730; 93005; 99285; A9270; 93010; 99283

== ENCOUNTER 2020-09-01 13:05 | Emergency (ER) | payer MEDICARE, BC ==
[2020-09-01] MEDS ORDERED: FLU Vacc QV2020-21(65YR UP)/PF 240 MCG/0.7 ML Syringe IM ONE (13:30)
--- NOTE | 2020-09-01 13:30 | EDM.PDOC ---
ED HPI GENERAL MEDICAL PROBLEM - General Chief Complaint: Head Injury Stated Complaint: HEAD INJURY Time Seen by Provider: 09/01/20 13:11 Source of Information: Reports: Patient, RN Notes Reviewed History Limitations: Reports: No Limitations - History of Present Illness INITIAL COMMENTS - FREE TEXT/NARRATIVE: Patient is a 65-year-old male presenting to the emergency department with complaints of intermittent dizziness. He states he fell and hit his head about 1 week ago. He denies loss of consciousness. States since that time, he has had the sensation that the room is spinning with position changes. If he holds still, the vertigo does eventually resolved. He does have a history of vertigo and states that this feels similar to his previous episodes, however it is less severe as he normally has nausea and vomiting with him as well. He has had no nausea and vomiting since the time of injury. He denies any headache or vision changes since the time of the injury. Patient has a history of a left-sided CVA 24 years ago with right-sided neurologic deficits. He takes an 81 mg aspirin daily, but is on no other anticoagulants. - Related Data Allergies Allergy/AdvReac Type Severity Reaction Status Date / Time No Known Allergies Allergy Verified 09/01/20 13:15 Home Meds: Home Meds Aspirin [Halfprin] 81 mg PO DAILY 04/30/18 [History] PARoxetine HCl [Paxil] 20 mg PO DAILY 04/30/18 [History] Past Medical History HEENT History: Reports: Impaired Vision Gastrointestinal History: Reports: GERD Genitourinary History: Reports: Renal Calculus Musculoskeletal History: Reports: Osteoarthritis Neurological History: Reports: CVA Psychiatric History: Reports: Anxiety, Depression - Past Surgical History GI Surgical History: Reports: Cholecystectomy Neurological Surgical History: Reports: Lumbar Spine Social & Family History - Family History Family Medical History: No Pertinent Family History - Tobacco Use Tobacco Use Status *Q: Never Tobacco User Second Hand Smoke Exposure: No - Caffeine Use Caffeine Use: Reports: Coffee - Recreational Drug Use Recreational Drug Use: No - Living Situation & Occupation Living situation: Reports: , Other Occupation: Employed ED ROS GENERAL - Review of Systems Review Of Systems: See Below Constitutional: Reports: No Symptoms HEENT: Reports: Vertigo. Denies: Vision Change Respiratory: Reports: No Symptoms Cardiovascular: Reports: No Symptoms Endocrine: Reports: No Symptoms GI/Abdominal: Reports: No Symptoms : Reports: No Symptoms Musculoskeletal: Reports: No Symptoms Skin: Reports: No Symptoms Neurological: Reports: Dizziness. Denies: Headache Psychiatric: Reports: No Symptoms Hematologic/Lymphatic: Reports: No Symptoms Immunologic: Reports: No Symptoms ED EXAM, HEAD INJURY - Physical Exam Exam: See Below General Appearance: Alert, WD/WN, No Apparent Distress Head: Atraumatic, Normocephalic Eyes: Bilateral Eye: PERRL Respiratory: No Respiratory Distress, Lungs Clear, Normal Breath Sounds, No Accessory Muscle Use, Chest Non-Tender Cardiovascular: Normal Peripheral Pulses, Regular Rate, Rhythm, No Edema, No Gallop, No JVD, No Murmur, No Rub GI/Abdominal Exam: Normal Bowel Sounds, Soft, Non-Tender, No Organomegaly, No Distention, No Abnormal Bruit, No Mass 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 As Tested, No Motor/Sensory Deficits, Alert, Normal Mood/Affect, Oriented x 3 Skin: Normal Color, Warm/Dry - [place] Coma Score Best Eye Response ([place]): (4) Open Spontaneously Best Verbal Response ([place]): (5) Oriented Best Motor Response ([place]): (6) Obeys Commands Course - Vital Signs Last Recorded V/S: Last Vital Signs Temp 97.2 F 09/01/20 13:13 Pulse 65 09/01/20 13:13 Resp 16 09/01/20 13:13 BP 155/95 H 09/01/20 13:19 Pulse Ox 97 09/01/20 13:13 - Orders/Labs/Meds Orders: Active Orders 24 hr Category Date Time Status Influenza Vaccine Charge [RC] .DISCHARGE Care 09/01/20 13:17 Active Consult to Physical Therapy [PT Evaluation and Cons 09/01/20 14:03 Active Treatment] [CONS] Routine Meds: Medications Discontinued Medications Generic Name Dose Route Start Last Admin Trade Name Freq PRN Reason Stop Dose Admin Influenza Virus Vaccine 240 mcg 09/01/20 13:30 09/01/20 15:12 Fluzone High-Dose Quad 2019- IM 09/01/20 13:31 240 mcg .ONCE ONE Administration - Re-Assessments/Exams Free Text/Narrative Re-Assessment/Exam: Patient is a 65-year-old male presenting to the emergency department with complaints of progressively worsening vertigo symptoms since falling and hitting his head last week. On exam, patient does complain of the room spinning with position changes, including lying down side, sitting up, and turning head to the right; however there is no obvious nystagmus visualized. He has no vertigo symptoms with turning his head to the left. We will complete a CT scan on his head. If this is normal, we will see if a physical therapist is available to evaluate and treat. 09/01/20 14:32 CT scan of the head showed no acute abnormalities. There is a large area of encephalomalacia in the left side of his frontal and parietal lobe consistent with prior infarction. Physical therapy has been consulted and they are currently in the room working with the patient. 09/01/20 14:58 Physical therapist reported that they did right side Robin maneuvers with the patient. He has been given home exercises that he can do as well. They will follow-up with him and continue treatment as needed. Discharge instructions as documented. 09/01/20 15:39 Departure - Departure Time of Disposition: 14:58 Disposition: Home, Self-Care 01 Condition: Good Clinical Impression: Vertigo - Discharge Information *PRESCRIPTION DRUG MONITORING PROGRAM REVIEWED*: No *COPY OF PRESCRIPTION DRUG MONITORING REPORT IN PATIENT JACK: No Instructions: How to Perform the Robin Maneuver Referrals: Perfecto Diop MD [Primary Care Provider] - Forms: ED Department Discharge Additional Instructions: You were seen in the emergency department today for symptoms of vertigo since falling and hitting her head [address] scan was completed your head and found to have no acute abnormalities. Physical therapy did evaluate and treat in the emergency department. They will continue to follow-up with you with ongoing treatments as needed. If you should experience any worsening symptoms, please not hesitate to return to the ER. Sepsis Event Note (ED) - Evaluation Sepsis Screening Result: No Definite Risk - Focused Exam Vital Signs: Vital Signs Temp Pulse Resp BP Pulse Ox 09/01/20 13:19 155/95 H 09/01/20 13:13 97.2 F 65 16 160/91 H 97 - My Orders Last 24 Hours: My Active Orders 09/01/20 13:17 Influenza Vaccine Charge [RC] .DISCHARGE 09/01/20 14:03 Consult to Physical Therapy [PT Evaluation and Treatment] [CONS] Routine - Assessment/Plan Last 24 Hours: My Active Orders 09/01/20 13:17 Influenza Vaccine Charge [RC] .DISCHARGE 09/01/20 14:03 Consult to Physical Therapy [PT Evaluation and Treatment] [CONS] Routine
--- NOTE | 2020-09-01 14:17 | CT ---
PROCEDURE INFORMATION: Exam: CT Head Without Contrast Exam date and time: 09/01/2020 1:26 PM Age: 65 years old Clinical indication: Injury or trauma; Other: Head injury; Blunt trauma (contusions or hematomas); Consciousness not specified TECHNIQUE: Imaging protocol: Computed tomography of the head without contrast. Radiation optimization: All CT scans at this facility use at least one of these dose optimization techniques: automated exposure control; mA and/or kV adjustment per patient size (includes targeted exams where dose is matched to clinical indication); or iterative reconstruction. COMPARISON: No relevant prior studies available. FINDINGS: Brain: Large area of encephalomalacia in the left frontal and parietal lobes consistent with prior infarction There is moderate diffuse heterogeneity of the white matter attenuation, consistent with chronic white matter ischemic changes. Moderate cerebral atrophy No acute intracranial hemorrhage.. Cerebral ventricles: No ventriculomegaly. Bones/joints: Degenerative changes in the temporomandibular joints Paranasal sinuses: Visualized sinuses are unremarkable. No fluid levels. Mastoid air cells: Visualized mastoid air cells are well aerated. Soft tissues: Unremarkable. IMPRESSION: No acute intracranial hemorrhage.. Thank you for allowing us to participate in the care of your patient. Dictated and Authenticated by: Juan Pablo Dsouza MD 09/01/2020 2:45 PM Central Time ([place] & [place]) [facility]
[2020-09-01 15:48] VITALS: BP 146/96; PULSE 69
== END 2020-09-01 15:18 | disposition home or self-care (01) ==
LOC: JD.ED 13:05
DX: R42 Dizziness and giddiness (principal); M19.90 Unspecified osteoarthritis, unspecified site; F41.9 Anxiety disorder, unspecified; F32.9 Major depressive disorder, single episode, unspecified; Z86.73 Personal history of transient ischemic attack (TIA), and cerebral infarction without residual deficits; Z79.82 Long term (current) use of aspirin; Z79.899 Other long term (current) drug therapy
CPT/HCPCS: 70450; 90662; 99284; G0008; 99283

== ENCOUNTER 2020-10-04 15:09 | Emergency (ER) | payer MEDICARE, BC ==
--- NOTE | 2020-10-04 15:57 | EDM.PDOC ---
ED HPI GENERAL MEDICAL PROBLEM - General Chief Complaint: Upper Extremity Injury/Pain Stated Complaint: R SHOULDER PAIN Time Seen by Provider: 10/04/20 15:19 Source of Information: Reports: Patient, RN Notes Reviewed History Limitations: Reports: No Limitations - History of Present Illness INITIAL COMMENTS - FREE TEXT/NARRATIVE: Patient is a 65-year-old male presenting to the emergency department with complaints of right shoulder pain for the last 2 days. He has had no known injury to the shoulder. Describes pain to the anterior proximal humerus. Rates pain 2 out of 10 when sitting up, however states that when lying down the pain is significantly worse. Has had no known injury to the shoulder. 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 States he does occasionally use his arm for certain tasks although it is quite weak. He denies any chest pain or shortness of breath. States he has a follow-up appointment scheduled with Hali Quarles NP, on Tuesday. Right Shoulder Pain Score (Numeric/FACES): 10 - Related Data Allergies Allergy/AdvReac Type Severity Reaction Status Date / Time No Known Allergies Allergy Verified 10/04/20 15:25 Home Meds: Home Meds Aspirin [Halfprin] 81 mg PO DAILY 04/30/18 [History] PARoxetine HCl [Paxil] 20 mg PO DAILY 04/30/18 [History] Acetaminophen/HYDROcodone [[place] 325-5 MG] 1 tab PO Q4H PRN #10 tablet 10/04/20 [Rx] predniSONE [Prednisone] 40 mg PO DAILY 5 Days #10 tablet 10/04/20 [Rx] Past Medical History HEENT History: Reports: Impaired Vision Gastrointestinal History: Reports: GERD Genitourinary History: Reports: Renal Calculus Musculoskeletal History: Reports: Osteoarthritis Neurological History: Reports: CVA Psychiatric History: Reports: Anxiety, Depression - Past Surgical History GI Surgical History: Reports: Cholecystectomy Neurological Surgical History: Reports: Lumbar Spine Social & Family History - Family History Family Medical History: No Pertinent Family History - Tobacco Use Tobacco Use Status *Q: Never Tobacco User - Caffeine Use Caffeine Use: Reports: Coffee - Recreational Drug Use Recreational Drug Use: Yes Drug Use in Last 12 Months: Yes Recreational Drug Type: Reports: Marijuana/Hashish Recreational Drug Use Frequency: Socially - Living Situation & Occupation Living situation: Reports: , Other Occupation: Employed Review of Systems - Review of Systems Review Of Systems: See Below Constitutional: Reports: No Symptoms Eyes: Reports: No Symptoms Ears: Reports: No Symptoms Nose: Reports: No Symptoms Mouth/Throat: Reports: No Symptoms Respiratory: Reports: No Symptoms. Denies: Shortness of Breath, Pleuritic Chest Pain, Cough Cardiovascular: Reports: No Symptoms. Denies: Chest Pain, Lightheadedness GI/Abdominal: Reports: No Symptoms Genitourinary: Reports: No Symptoms Musculoskeletal: Reports: Shoulder Pain (right) Skin: Reports: No Symptoms Neurological: Reports: No Symptoms Psychiatric: Reports: No Symptoms ED EXAM, GENERAL - Physical Exam Exam: See Below General Appearance: Alert, WD/WN, No Apparent Distress Respiratory/Chest: No Respiratory Distress, Lungs Clear, Normal Breath Sounds, No Accessory Muscle Use, Chest Non-Tender Cardiovascular: Normal Peripheral Pulses, Regular Rate, Rhythm, No Edema, No Gallop, No JVD, No Murmur, No Rub Extremities: Other (mild tenderness to palpation to the anterior aspect of the proximal humerous. No redness, warmth, or edema. No pain with movement.) Neurological: Alert, Oriented, CN II-XII Intact, Normal Cognition, Normal Gait, Normal Reflexes, No Motor/Sensory Deficits Psychiatric: Normal Affect, Normal Mood Skin Exam: Warm, Dry, Intact, Normal Color, No Rash Course - Vital Signs Last Recorded V/S: Last Vital Signs Temp 97 F 10/04/20 15:23 Pulse 70 10/04/20 15:23 Resp 16 10/04/20 15:23 BP 142/78 H 10/04/20 15:23 Pulse Ox 95 10/04/20 15:23 - Orders/Labs/Meds Orders: Active Orders 24 hr Category Date Time Status EKG Documentation Completion [RC] STAT Care 10/04/20 15:34 Active Chest 2V [CR] Stat Exams 10/04/20 15:34 Taken Shoulder Comp Rt [CR] Stat Exams 10/04/20 15:34 Taken Labs: Laboratory Tests 10/04/20 10/04/20 Range/Units 15:50 15:50 WBC 5.28 (4.23-9.07) K/mm3 RBC 5.17 (4.63-6.08) M/mm3 Hgb 15.2 (13.7-17.5) gm/dl Hct 46.3 (40.1-51.0) % MCV 89.6 (79.0-92.2) fl MCH 29.4 (25.7-32.2) pg MCHC 32.8 (32.2-35.5) g/dl RDW Std Deviation 44.2 H (35.1-43.9) fL Plt Count 196 (163-337) K/mm3 MPV 11.5 (9.4-12.3) fl Neut % (Auto) 56.6 (34.0-67.9) % Lymph % (Auto) 32.2 (21.8-53.1) % [place] % (Auto) 8.7 (5.3-12.2) % Eos % (Auto) 1.9 (0.8-7.0) Baso % (Auto) 0.4 (0.1-1.2) % Neut # (Auto) 2.99 (1.78-5.38) K/mm3 Lymph # (Auto) 1.70 (1.32-3.57) K/mm3 [place] # (Auto) 0.46 (0.30-0.82) K/mm3 Eos # (Auto) 0.10 (0.04-0.54) K/mm3 Baso # (Auto) 0.02 (0.01-0.08) K/mm3 Sodium 139 (136-145) mEq/L Potassium 4.0 (3.5-5.1) mEq/L Chloride 106 (98-107) mEq/L Carbon Dioxide 26 (21-32) mEq/L Anion Gap 11.0 (5-15) BUN 18 (7-18) mg/dL Creatinine 2.0 H (0.7-1.3) mg/dL Est Cr Clr Drug Dosing 39.88 mL/min Estimated GFR (MDRD) 34 (>60) mL/min BUN/Creatinine Ratio 9.0 L (14-18) Glucose 106 (80-115) mg/dL Calcium 8.9 (8.5-10.1) mg/dL Total Bilirubin 0.4 (0.2-1.0) mg/dL AST 15 (15-37) U/L ALT 26 (16-63) U/L Alkaline Phosphatase 64 (46-116) U/L Troponin I < 0.017 (0.00-0.056) ng/mL Total Protein 6.9 (6.4-8.2) g/dl Albumin 3.7 (3.4-5.0) g/dl Globulin 3.2 gm/dL Albumin/Globulin Ratio 1.2 (1-2) - Re-Assessments/Exams Free Text/Narrative Re-Assessment/Exam: Patient is a 65-year-old male presenting to the emergency department with complaints of right shoulder pain with no known injury. This has been going on for about 2 days. States that when he is sitting up the pain is tolerable, however when he lays down it is much more intense and he has difficulty sleeping. Denies any chest pain or shortness of breath. My suspicion for cardiac involvement is quite low, however we will complete a cardiac work-up. I have ordered CBC, CMP, CRP, EKG, chest x-ray, and shoulder x-ray. Pain is rated at 2 out of 10 at this time. He does not think he needs anything for pain right now. 10/04/20 16:45 Hematology was grossly unremarkable. Troponin negative. EKG showed no signs of acute ischemia. Shoulder x-ray shows signs of degenerative changes but no acute abnormalities. 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 I will start the patient on course of prednisone as well as give him [place] that he may use for pain before going to bed. Recommend that he keep his follow-up appoint with Hali Quarles on Tuesday. Discharge instructions as documented. Departure - Departure Time of Disposition: 16:46 Disposition: Home, Self-Care 01 Condition: Good Clinical Impression: Shoulder pain Qualifiers: Chronicity: acute Laterality: right Qualified Code(s): M25.511 - Pain in right shoulder - Discharge Information *PRESCRIPTION DRUG MONITORING PROGRAM REVIEWED*: Yes *COPY OF PRESCRIPTION DRUG MONITORING REPORT IN PATIENT JACK: No Prescriptions: Acetaminophen/HYDROcodone [[place] 325-5 MG] 1 tab PO Q4H PRN #10 tablet PRN Reason: Pain predniSONE [Prednisone] 40 mg PO DAILY 5 Days #10 tablet Instructions: Shoulder Pain Referrals: Perfecto Diop MD [Primary Care Provider] - Alicia Quarles NP [Ordering Only Provider] - Forms: ED Department Discharge Additional Instructions: You were seen in the emergency department today for right shoulder pain. Work- up included blood work, EKG, chest x-ray, and shoulder x-ray. Results of your work-up ruled out cardiac involvement, such as a heart attack. The x-ray of your shoulder shows some degenerative changes consistent with likely arthritis. You been started on prednisone. Take this medication daily as prescribed. Recommend Tylenol and ibuprofen routinely for pain. For pain not relieved by this, you have been provided a short course of [place]. Take this medication only as prescribed. Do not work or drive for 12 hours after taking this as it can be sedating. Recommend that you keep your follow-up appointment with Hali Quarles as scheduled on Tuesday. Return to ER for any new or worsening symptoms of concern. Sepsis Event Note (ED) - Evaluation Sepsis Screening Result: No Definite Risk - Focused Exam Vital Signs: Vital Signs Temp Pulse Resp BP Pulse Ox 10/04/20 15:23 97 F 70 16 142/78 H 95 - My Orders Last 24 Hours: My Active Orders 10/04/20 15:34 EKG Documentation Completion [RC] STAT Chest 2V [CR] Stat Shoulder Comp Rt [CR] Stat - Assessment/Plan Last 24 Hours: My Active Orders 10/04/20 15:34 EKG Documentation Completion [RC] STAT Chest 2V [CR] Stat Shoulder Comp Rt [CR] Stat
[2020-10-04 17:19] VITALS: BP 139/76; PULSE 64
--- NOTE | 2020-10-05 09:12 | CR ---
Chest: 2 views of the chest were obtained. Comparison: Previous chest x-ray of 11/01/19. Elevated right hemidiaphragm is seen which is stable. Nondilated bowel is noted between the diaphragm and liver which is stable. Lungs are clear with no acute parenchymal change. Heart size and mediastinum are normal. Slight scoliosis is noted within the spine. Several mild anterior wedge deformities are seen believed to be chronic. Surgical material is seen within the abdomen. Impression: 1. Findings as noted above which appear chronic. 2. Nothing acute is appreciated. Diagnostic code #2
--- NOTE | 2020-10-05 09:13 | CR ---
Right shoulder: 3 views of the right shoulder were obtained. Comparison: No prior shoulder study is available. Degenerative change is noted within the glenohumeral joint with inferior spurring off the humeral head. Mild joint space narrowing is seen within the acromioclavicular joint with slight inferior spurring. No acute fracture, dislocation or other bony abnormality is appreciated. No abnormal soft tissue calcifications are seen. Impression: 1. Degenerative change as noted above. 2. Nothing acute is appreciated. Diagnostic code #2
== END 2020-10-04 17:18 | disposition home or self-care (01) ==
LOC: JD.ED 15:09
DX: M25.511 Pain in right shoulder (principal); F41.9 Anxiety disorder, unspecified; F32.9 Major depressive disorder, single episode, unspecified; M19.90 Unspecified osteoarthritis, unspecified site; Z79.899 Other long term (current) drug therapy; Z79.82 Long term (current) use of aspirin
CPT/HCPCS: 36415; 71046; 71046-26; 73030-26-RT; 73030-RT; 80053; 84484; 85025; 93005; 93010; 99283; 99284-25

== ENCOUNTER 2021-05-23 15:11 | Emergency (ER) | payer MEDICARE, BC ==
--- NOTE | 2021-05-23 15:49 | EDM.PDOC ---
ED HPI GENERAL MEDICAL PROBLEM - General Chief Complaint: Abdominal Pain Stated Complaint: RT SIDE RIB PAIN Time Seen by Provider: 05/23/21 15:48 - History of Present Illness INITIAL COMMENTS - FREE TEXT/NARRATIVE: 65-year-old male presents the emergency room with right-sided flank pain and lower abdominal pain. Patient states his pain started about 3 hours ago. It was fairly sudden onset. He has pain in the right lower quadrant. He had urinary urgency when he pressed on the right lower quadrant at home. He is not had any fevers or chills. He does have a history of kidney stones. He believes his last kidney stone was 5 or 6 years ago. Patient has a history of what sounds like a hemorrhagic stroke in the past he is going to decrease use of his right side. This was about 25 years ago. 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: Other (see below) Other Treatments WAREHOUSE LOGISTICS MANAGER: none Right Abdomen Pain Score (Numeric/FACES): 7 - Related Data Allergies Allergy/AdvReac Type Severity Reaction Status Date / Time No Known Allergies Allergy Verified 10/04/20 15:25 Home Meds: Home Meds Aspirin [Halfprin] 81 mg PO DAILY 04/30/18 [History] PARoxetine HCl [Paxil] 20 mg PO DAILY 04/30/18 [History] Acetaminophen [Tylenol] 650 mg PO BEDTIME 05/23/21 [History] Hydrocodone/Acetaminophen [HYDROcodone-Acetaminophen 5-325 MG] 1 each PO Q6H PRN #15 tab 05/23/21 [Rx] Past Medical History HEENT History: Reports: Impaired Vision Gastrointestinal History: Reports: GERD Genitourinary History: Reports: Renal Calculus Musculoskeletal History: Reports: Osteoarthritis Neurological History: Reports: CVA Psychiatric History: Reports: Anxiety, Depression - Past Surgical History GI Surgical History: Reports: Cholecystectomy Neurological Surgical History: Reports: Lumbar Spine Social & Family History - Family History Family Medical History: No Pertinent Family History - Tobacco Use Tobacco Use Status *Q: Never Tobacco User - Caffeine Use Caffeine Use: Reports: Coffee, Soda, Tea - Recreational Drug Use Recreational Drug Type: Reports: Marijuana/Hashish - Living Situation & Occupation Living situation: Reports: , Other Occupation: Employed ED ROS GENERAL - Review of Systems Review Of Systems: See Below Constitutional: Reports: No Symptoms HEENT: Reports: No Symptoms Respiratory: Reports: No Symptoms Cardiovascular: Reports: No Symptoms GI/Abdominal: Reports: Other (See HPI) : Reports: Other (See HPI) Musculoskeletal: Reports: No Symptoms Skin: Reports: No Symptoms Neurological: Reports: Other (No new symptoms) Psychiatric: Reports: No Symptoms Hematologic/Lymphatic: Reports: No Symptoms ED EXAM, GENERAL - Physical Exam Exam: See Below Exam Limited By: No Limitations General Appearance: Alert, No Apparent Distress Head: Atraumatic, Normocephalic Neck: Normal Inspection, Supple, Non-Tender, Full Range of Motion. No: Lymphadenopathy (L), Lymphadenopathy (R) Respiratory/Chest: No Respiratory Distress, Lungs Clear, Normal Breath Sounds Cardiovascular: Regular Rate, Rhythm, No Edema, No Murmur GI/Abdominal: Normal Bowel Sounds, Soft, Other (No tenderness aggravated with palpation his pain seems to be on the right side no rigidity rebound or guarding) Back Exam: Normal Inspection, CVA Tenderness (R). No: CVA Tenderness (L) Extremities: Normal Inspection, No Pedal Edema Neurological: Alert, Oriented Course - Vital Signs Last Recorded V/S: Last Vital Signs Temp 36.1 C 05/23/21 15:45 Pulse 61 05/23/21 15:45 Resp 20 05/23/21 15:45 BP 139/82 05/23/21 15:45 Pulse Ox 96 05/23/21 15:45 - Orders/Labs/Meds Orders: Active Orders 24 hr Category Date Time Status Abdomen Pelvis wo Cont [CT] Stat Exams 05/23/21 16:53 Taken Labs: Laboratory Tests 05/23/21 05/23/21 05/23/21 Range/Units 16:01 17:00 17:00 WBC 5.59 (4.23-9.07) K/mm3 RBC 5.21 (4.63-6.08) M/mm3 Hgb 15.7 (13.7-17.5) gm/dl Hct 47.0 (40.1-51.0) % MCV 90.2 (79.0-92.2) fl MCH 30.1 (25.7-32.2) pg MCHC 33.4 (32.2-35.5) g/dl RDW Std Deviation 45.7 H (35.1-43.9) fL Plt Count 198 (163-337) K/mm3 MPV 11.4 (9.4-12.3) fl Neut % (Auto) 60.6 (34.0-67.9) % Lymph % (Auto) 26.7 (21.8-53.1) % [place] % (Auto) 10.0 (5.3-12.2) % Eos % (Auto) 2.1 (0.8-7.0) Baso % (Auto) 0.4 (0.1-1.2) % Neut # (Auto) 3.39 (1.78-5.38) K/mm3 Lymph # (Auto) 1.49 (1.32-3.57) K/mm3 [place] # (Auto) 0.56 (0.30-0.82) K/mm3 Eos # (Auto) 0.12 (0.04-0.54) K/mm3 Baso # (Auto) 0.02 (0.01-0.08) K/mm3 Sodium 144 (136-145) mEq/L Potassium 5.0 (3.5-5.1) mEq/L Chloride 108 H (98-107) mEq/L Carbon Dioxide 28 (21-32) mEq/L Anion Gap 13.0 (5-15) BUN 19 H (7-18) mg/dL Creatinine 1.5 H (0.7-1.3) mg/dL Est Cr Clr Drug Dosing 53.17 mL/min Estimated GFR (MDRD) 47 (>60) mL/min BUN/Creatinine Ratio 12.7 L (14-18) Glucose 127 H (70-99) mg/dL Calcium 8.9 (8.5-10.1) mg/dL Total Bilirubin 0.3 (0.2-1.0) mg/dL AST 15 (15-37) U/L ALT 31 (16-63) U/L Alkaline Phosphatase 72 (46-116) U/L Total Protein 7.0 (6.4-8.2) g/dl Albumin 3.7 (3.4-5.0) g/dl Globulin 3.3 gm/dL Albumin/Globulin Ratio 1.1 (1-2) Urine Color Yellow (Yellow) Urine Appearance Clear (Clear) Urine pH 5.5 (5.0-8.0) Ur Specific [place] > or = 1.030 (1.005-1.030) Urine Protein Negative (Negative) Urine Glucose (UA) Negative (Negative) Urine Ketones Negative (Negative) Urine Occult Blood 2+ H (Negative) Urine Nitrite Negative (Negative) Urine Bilirubin Negative (Negative) Urine Urobilinogen 1.0 (0.2-1.0) Ur Leukocyte Esterase Negative (Negative) Urine RBC 5-10 H (0-5) /hpf Urine WBC 0-5 (0-5) /hpf Ur Squamous Epith Cells 0-5 (0-5) /hpf Urine Bacteria Few (FEW) /hpf Urine Mucus Few (FEW) /hpf Meds: Medications Discontinued Medications Generic Name Dose Route Start Last Admin Trade Name Bunny PRN Reason Stop Dose Admin Hydromorphone HCl 0.5 mg 05/23/21 17:51 05/23/21 17:56 Hydromorphone 0.5 Mg/0.5 Ml Syringe IM 05/23/21 17:52 0.5 mg ONETIME ONE Administration - Re-Assessments/Exams Free Text/Narrative Re-Assessment/Exam: 05/23/21 16:55 UA is not suggestive of UTI we will go ahead and check a CT KUB. Other labs pending. 05/23/21 19:01 CT is suggestive of a right hydronephrosis and hydroureter secondary to an obstructing 5 mm stone at the UVJ. Radiology confirms. Patient received some IM Dilaudid and feels much better. We will start him on pain medication have him follow-up with his regular healthcare provider for recheck on Tuesday. We will give him the equipment to strain his urine. Departure - Departure Time of Disposition: 19:02 Disposition: Home, Self-Care 01 Clinical Impression: Right kidney stone - Discharge Information Referrals: Perfecto Diop MD [Primary Care Provider] - Forms: ED Department Discharge Additional Instructions: Return to the emergency room with any questions problems or worsening symptoms. Return immediately if you start running fevers. You have been started on some pain pills take 1 every 6 hours as needed allow 12 hours after using this medication before driving or returning to work the pre scription of this is been sent electronically to [facility] in the [facility]. You have been given the equipment to strain your urine try and catch the stone discussed with your physician having it assessed to see if there is something you can do dietary aguilar to prevent these from happening again. Sepsis Event Note (ED) - Focused Exam Vital Signs: Vital Signs Temp Pulse Resp BP Pulse Ox 05/23/21 15:45 36.1 C 61 20 139/82 96 - My Orders Last 24 Hours: My Active Orders 05/23/21 16:53 Abdomen Pelvis wo Cont [CT] Stat - Assessment/Plan Last 24 Hours: My Active Orders 05/23/21 16:53 Abdomen Pelvis wo Cont [CT] Stat
[2021-05-23 15:54] VITALS: BP 139/82; PULSE 61
[2021-05-23] MEDS ORDERED: HYDROmorphone 0.5 MG/0.5 ML Syringe IM ONE (17:51)
--- NOTE | 2021-05-24 09:46 | CT ---
CT abdomen and pelvis Technique: Multiple axial sections were obtained from above the kidneys inferiorly through the pubic symphysis. Intravenous and oral contrast were not utilized. Study has been performed as a ureteral stone protocol. Comparison: Previous abdomen and pelvis CT of 04/30/18 Findings: Right ureter is prominent in size. Right renal pelvis is also prominent in size. These findings are caused by a distal right ureteral stone measuring approximately 6 mm. This occurs slightly proximal to the UVJ. No other ureteral calculi are seen. No other renal calculi are noted. Left kidney shows a cyst measuring 1.6 cm. No abnormal calcifications are seen within either kidney. Visualized lung bases show nothing acute. Liver is not completely included on this exam. Liver shows diminished density compatible with fatty infiltration. Spleen size is within normal limits. Adrenal glands show no nodule. Pancreas shows no discrete abnormality. Surgical clips are noted from prior cholecystectomy. Abdominal aorta shows atherosclerotic change without aneurysm. No retroperitoneal adenopathy or mesenteric abnormalities are seen. Appendix is seen which is normal. No pelvic mass or adenopathy is seen. Mild diverticuli are seen within the descending and sigmoid region. No inflammatory change or free fluid is seen. Small fat-containing left inguinal hernia is noted. Bone window settings were reviewed which show scattered degenerative change within the spine. Impression: 1. Obstructing 6 mm stone within the distal right ureter which is located slightly proximal to the UVJ. 2. Small cyst within the left kidney. No renal calculi are seen within the kidneys. 3. Other findings as noted above believed to be chronic and nonacute. Diagnostic code #3 I agree with preliminary report from [facility], finalized on 05/23/21, 6:57 PM CDT, code 1
== END 2021-05-23 19:30 | disposition home or self-care (01) ==
LOC: SUPCPDRO 15:11 → JD.ED 15:11
DX: N13.2 Hydronephrosis with renal and ureteral calculous obstruction (principal); M19.90 Unspecified osteoarthritis, unspecified site; Z79.82 Long term (current) use of aspirin; Z79.899 Other long term (current) drug therapy
CPT/HCPCS: 36415; 74176; 80053; 81001; 85025; 96372; 99284; J1170

== ENCOUNTER 2021-05-24 06:51 | Emergency (ER) | payer MEDICARE, BC ==
--- NOTE | 2021-05-24 07:08 | EDM.PDOC ---
ED HPI GENERAL MEDICAL PROBLEM - General Chief Complaint: General Stated Complaint: RT SIDE RIB PAIN NOT GETTING BETTER Time Seen by Provider: 05/24/21 07:06 - History of Present Illness INITIAL COMMENTS - FREE TEXT/NARRATIVE: 65-year-old male returns to the emergency room unable to keep his pain medication down with developing nausea and vomiting. Patient was seen here yesterday diagnosed with a 5 to 6 mm kidney stone at the right UVJ. He was having mild to moderate pain and was discharged on hydrocodone. However he had a rough night he developed some nausea and vomiting and has not been able to keep the pain medications down. Patient has no other complaints at this time he is not aware of having any fevers or chills. Yesterday's urinalysis had 5-10 RBCs 0-5 WBCs leukocyte Estrace negative nitrates negative. Right Flank Pain Score (Numeric/FACES): 10 - Related Data Allergies Allergy/AdvReac Type Severity Reaction Status Date / Time No Known Allergies Allergy Verified 10/04/20 15:25 Home Meds: Home Meds Aspirin [Halfprin] 81 mg PO DAILY 04/30/18 [History] PARoxetine HCl [Paxil] 20 mg PO DAILY 04/30/18 [History] Acetaminophen [Tylenol] 650 mg PO BEDTIME 05/23/21 [History] Hydrocodone/Acetaminophen [HYDROcodone-Acetaminophen 5-325 MG] 1 each PO Q6H PRN #15 tab 05/23/21 [Rx] Past Medical History HEENT History: Reports: Impaired Vision Gastrointestinal History: Reports: GERD Genitourinary History: Reports: Renal Calculus Musculoskeletal History: Reports: Osteoarthritis Neurological History: Reports: CVA Psychiatric History: Reports: Anxiety, Depression - Past Surgical History GI Surgical History: Reports: Cholecystectomy Neurological Surgical History: Reports: Lumbar Spine Social & Family History - Family History Family Medical History: No Pertinent Family History - Caffeine Use Caffeine Use: Reports: Coffee, Soda, Tea - Living Situation & Occupation Living situation: Reports: , Other Occupation: Employed ED ROS GENERAL - Review of Systems Review Of Systems: See Below Constitutional: Reports: Diaphoresis. Denies: Fever, Chills HEENT: Reports: No Symptoms Respiratory: Reports: No Symptoms Cardiovascular: Reports: No Symptoms Endocrine: Reports: No Symptoms GI/Abdominal: Reports: Abdominal Pain : Reports: Frequency, Urgency Musculoskeletal: Reports: No Symptoms Skin: Reports: No Symptoms Neurological: Reports: No Symptoms ED EXAM, GENERAL - Physical Exam Exam: See Below Exam Limited By: No Limitations General Appearance: Alert, Mild Distress (From the discomfort), Other (He is diaphoretic) Head: Atraumatic, Normocephalic Neck: Normal Inspection, Supple, Non-Tender, Full Range of Motion Respiratory/Chest: No Respiratory Distress, Lungs Clear, Normal Breath Sounds Cardiovascular: Regular Rate, Rhythm, No Edema, No Murmur GI/Abdominal: Normal Bowel Sounds, Soft, Other (Right-sided tenderness not necessarily aggravated with palpation no rigidity rebound or guarding appreciated) Back Exam: Normal Inspection, CVA Tenderness (R). No: CVA Tenderness (L) Extremities: Normal Inspection, No Pedal Edema Neurological: Alert, Oriented, Normal Cognition Course - Vital Signs Last Recorded V/S: Last Vital Signs Temp 36.4 C 05/24/21 11:20 Pulse 64 05/24/21 11:20 Resp 16 05/24/21 11:20 BP 113/67 05/24/21 11:20 Pulse Ox 96 05/24/21 11:20 - Orders/Labs/Meds Orders: Active Orders 24 hr Category Date Time Status Insert Mata Catheter [Insert Urinary Catheter] [OM.PC] Care 05/24/21 09:25 Ordered Stat Oxygen Therapy, ED [RC] ASDIRECTED Care 05/24/21 07:40 Active Urinary Catheter Assessment [RC] ASDIRECTED Care 05/24/21 09:25 Active BLOOD CULTURE [MREF] Stat Lab 05/24/21 08:00 Received BLOOD CULTURE [MREF] Stat Lab 05/24/21 08:10 Received Lactated Ringers [Ringers, Lactated] 1,000 ml Med 05/24/21 07:15 Active IV ASDIRECTED Blood Culture x2 Reflex Set [OM.PC] Stat Oth 05/24/21 07:29 Ordered Medication Orders Lactated Ringer's (Ringers, Lactated) 1,000 mls @ 125 mls/hr IV ASDIRECTED YURIY [facility] Infusion: 05/24/21 10:05 Dose: 999 mls/hr Documented by: Admin: 05/24/21 07:30 Dose: 125 mls/hr Documented by: YESY Labs: Laboratory Tests 05/24/21 05/24/21 05/24/21 Range/Units 07:25 07:25 08:10 WBC 9.42 H (4.23-9.07) K/mm3 RBC 5.54 (4.63-6.08) M/mm3 Hgb 16.3 (13.7-17.5) gm/dl Hct 49.5 (40.1-51.0) % MCV 89.4 (79.0-92.2) fl MCH 29.4 (25.7-32.2) pg MCHC 32.9 (32.2-35.5) g/dl RDW Std Deviation 44.8 H (35.1-43.9) fL Plt Count 202 (163-337) K/mm3 MPV 11.7 (9.4-12.3) fl Neutrophils % (Manual) 73 H (40-60) % Band Neutrophils % 4 (0-10) % Lymphocytes % (Manual) 17 L (20-40) % Atypical Lymphs % 0 % Monocytes % (Manual) 6 (2-10) % Eosinophils % (Manual) 0 L (0.8-7.0) % Basophils % (Manual) 0 L (0.2-1.2) Platelet Estimate Adequate Plt Morphology Comment Normal RBC Morph Comment Normal Sodium 144 (136-145) mEq/L Potassium 3.8 (3.5-5.1) mEq/L Chloride 107 (98-107) mEq/L Carbon Dioxide 22 (21-32) mEq/L Anion Gap 18.8 H (5-15) BUN 19 H (7-18) mg/dL Creatinine 1.6 H (0.7-1.3) mg/dL Est Cr Clr Drug Dosing 49.85 mL/min Estimated GFR (MDRD) 43 (>60) mL/min BUN/Creatinine Ratio 11.9 L (14-18) Glucose 132 H (70-99) mg/dL Lactic Acid 1.2 (0.4-2.0) mmol/L Calcium 8.7 (8.5-10.1) mg/dL Total Bilirubin 0.9 (0.2-1.0) mg/dL AST 14 L (15-37) U/L ALT 28 (16-63) U/L Alkaline Phosphatase 66 (46-116) U/L Total Protein 7.6 (6.4-8.2) g/dl Albumin 4.1 (3.4-5.0) g/dl Globulin 3.5 gm/dL Albumin/Globulin Ratio 1.2 (1-2) Urine Color (Yellow) Urine Appearance (Clear) Urine pH (5.0-8.0) Ur Specific [place] (1.005-1.030) Urine Protein (Negative) Urine Glucose (UA) (Negative) Urine Ketones (Negative) Urine Occult Blood (Negative) Urine Nitrite (Negative) Urine Bilirubin (Negative) Urine Urobilinogen (0.2-1.0) Ur Leukocyte Esterase (Negative) U Hyaline Cast (Auto) (0-5) /lpf Urine RBC (0-5) /hpf Urine WBC (0-5) /hpf Ur Epithelial Cells (0-5) /hpf Calcium Oxalate Crystal (NONE) Urine Bacteria (FEW) /hpf Urine Mucus (FEW) /hpf 05/24/21 Range/Units 09:25 WBC (4.23-9.07) K/mm3 RBC (4.63-6.08) M/mm3 Hgb (13.7-17.5) gm/dl Hct (40.1-51.0) % MCV (79.0-92.2) fl MCH (25.7-32.2) pg MCHC (32.2-35.5) g/dl RDW Std Deviation (35.1-43.9) fL Plt Count (163-337) K/mm3 MPV (9.4-12.3) fl Neutrophils % (Manual) (40-60) % Band Neutrophils % (0-10) % Lymphocytes % (Manual) (20-40) % Atypical Lymphs % % Monocytes % (Manual) (2-10) % Eosinophils % (Manual) (0.8-7.0) % Basophils % (Manual) (0.2-1.2) Platelet Estimate Plt Morphology Comment RBC Morph Comment Sodium (136-145) mEq/L Potassium (3.5-5.1) mEq/L Chloride (98-107) mEq/L Carbon Dioxide (21-32) mEq/L Anion Gap (5-15) BUN (7-18) mg/dL Creatinine (0.7-1.3) mg/dL Est Cr Clr Drug Dosing mL/min Estimated GFR (MDRD) (>60) mL/min BUN/Creatinine Ratio (14-18) Glucose (70-99) mg/dL Lactic Acid (0.4-2.0) mmol/L Calcium (8.5-10.1) mg/dL Total Bilirubin (0.2-1.0) mg/dL AST (15-37) U/L ALT (16-63) U/L Alkaline Phosphatase (46-116) U/L Total Protein (6.4-8.2) g/dl Albumin (3.4-5.0) g/dl Globulin gm/dL Albumin/Globulin Ratio (1-2) Urine Color Yellow (Yellow) Urine Appearance Clear (Clear) Urine pH 5.0 (5.0-8.0) Ur Specific [place] > or = 1.030 (1.005-1.030) Urine Protein Trace H (Negative) Urine Glucose (UA) Negative (Negative) Urine Ketones Trace H (Negative) Urine Occult Blood 2+ H (Negative) Urine Nitrite Negative (Negative) Urine Bilirubin 1+ H (Negative) Urine Urobilinogen 0.2 (0.2-1.0) Ur Leukocyte Esterase Negative (Negative) U Hyaline Cast (Auto) 0-5 (0-5) /lpf Urine RBC 10-20 H (0-5) /hpf Urine WBC 0-5 (0-5) /hpf Ur Epithelial Cells Not seen (0-5) /hpf Calcium Oxalate Crystal Rare H (NONE) Urine Bacteria Moderate H (FEW) /hpf Urine Mucus Moderate H (FEW) /hpf Meds: Medications Generic Name Dose Route Start Last Admin Trade Name Freq PRN Reason Stop Dose Admin Lactated Ringer's 1,000 mls @ 125 mls/hr 05/24/21 07:15 05/24/21 10:05 Ringers, Lactated IV 999 mls/hr ASDIRECTED YURIY Infusion Discontinued Medications Generic Name Dose Route Start Last Admin Trade Name Freq PRN Reason Stop Dose Admin Fentanyl 50 mcg 05/24/21 08:43 05/24/21 08:50 Fentanyl 100 Mcg/2 Ml Sdv IVPUSH 05/24/21 08:44 50 mcg ONETIME ONE Administration Hydromorphone HCl 0.5 mg 05/24/21 07:09 05/24/21 07:28 Hydromorphone 0.5 Mg/0.5 Ml Syringe IVPUSH 08/08/21 07:10 0.5 mg ONETIME ONE Administration Hydromorphone HCl 0.5 mg 05/24/21 08:17 05/24/21 08:20 Hydromorphone 0.5 Mg/0.5 Ml Syringe IVPUSH 05/24/21 08:18 0.5 mg ONETIME ONE Administration Lactated Ringer's 500 mls @ 999 mls/hr 05/24/21 09:57 05/24/21 11:00 Ringers, Lactated IV 05/24/21 10:27 999 mls/hr .BOLUS ONE Administration Ondansetron HCl 4 mg 05/24/21 07:09 05/24/21 07:26 Ondansetron 4 Mg/2 Ml Sdv IVPUSH 05/24/21 07:10 4 mg ONETIME ONE Administration - Re-Assessments/Exams Free Text/Narrative Re-Assessment/Exam: 05/24/21 13:07 Labs are nondiagnostic UA did not suggest a UTI. He does appear little dry on labs he was gently given 2 L of fluid and is feeling much better he voided again on his own. He has been pain-free for the last several hours. With the prox imity to the bladder I suspect this gentleman is passed the stone. At this point he would like to go home. Departure - Departure Time of Disposition: 13:08 Disposition: Home, Self-Care 01 Clinical Impression: Right kidney stone - Discharge Information Referrals: PCP,None [Primary Care Provider] - Forms: ED Department Discharge Additional Instructions: Return to the emergency room with any questions problems or worsening symptoms Follow-up with your physician early this week for recheck. Strain your urine trying to find the stone and discuss if it should be analyzed with your regular physician. Sepsis Event Note (ED) - Focused Exam Vital Signs: Vital Signs Temp Pulse Resp BP Pulse Ox 05/24/21 11:20 36.4 C 64 16 113/67 96 05/24/21 08:24 35.9 C L 65 18 176/102 H 97 05/24/21 07:05 35.0 C L 58 L 16 165/84 H 96 - My Orders Last 24 Hours: My Active Orders 05/24/21 07:15 Lactated Ringers [Ringers, Lactated] 1,000 ml IV ASDIRECTED 05/24/21 07:29 Blood Culture x2 Reflex Set [OM.PC] Stat 05/24/21 07:40 Oxygen Therapy, ED [RC] ASDIRECTED 05/24/21 08:00 BLOOD CULTURE [MREF] Stat 05/24/21 08:10 BLOOD CULTURE [MREF] Stat 05/24/21 09:25 Insert Mata Catheter [Insert Urinary Catheter] [OM.PC] Stat Urinary Catheter Assessment [RC] ASDIRECTED - Assessment/Plan Last 24 Hours: My Active Orders 05/24/21 07:15 Lactated Ringers [Ringers, Lactated] 1,000 ml IV ASDIRECTED 05/24/21 07:29 Blood Culture x2 Reflex Set [OM.PC] Stat 05/24/21 07:40 Oxygen Therapy, ED [RC] ASDIRECTED 05/24/21 08:00 BLOOD CULTURE [MREF] Stat 05/24/21 08:10 BLOOD CULTURE [MREF] Stat 05/24/21 09:25 Insert Mata Catheter [Insert Urinary Catheter] [OM.PC] Stat Urinary Catheter Assessment [RC] ASDIRECTED
[2021-05-24] MEDS ORDERED: HYDROmorphone 0.5 MG/0.5 ML Syringe IVPUSH ONE ×2 (07:09→08:17)
[2021-05-24] MEDS ORDERED: Ondansetron 4 MG/2 ML SDV IVPUSH ONE (07:09)
[2021-05-24] MEDS ORDERED: Lactated Ringers 1,000 ML IV SCH (07:15)
[2021-05-24] MEDS ORDERED: fentaNYL 100 MCG/2 ML SDV IVPUSH ONE (08:43)
[2021-05-24] MEDS ORDERED: Lactated Ringers 500 ML IV ONE (09:57)
[2021-05-24 13:39] VITALS: BP 118/65; PULSE 60
== END 2021-05-24 13:36 | disposition home or self-care (01) ==
LOC: JD.ED 06:51
DX: N20.0 Calculus of kidney (principal); M19.90 Unspecified osteoarthritis, unspecified site; Z79.82 Long term (current) use of aspirin; Z79.899 Other long term (current) drug therapy
CPT/HCPCS: 36415; 80053; 81001; 83605; 85007; 85027; 87040; 96374; 96375; 96376; 99284; J1170; J2405; J3010; J7120; 51702

== ENCOUNTER 2023-08-04 11:36 | Emergency (ER) | payer MEDICARE, BC ==
[2023-08-04] MEDS ORDERED: Ondansetron 4 MG Tab.DIS PO ONE (11:55)
[2023-08-04 12:23] LABS: BASOPHILS PERCENT AUTO 0.5 % (0.0-1.0); EOSINOPHILS ABSOLUTE AUTO 0.1 K/mm3 (0.0-0.4); EOSINOPHILS PERCENT AUTO 1.1 % (0.0-6.0); HEMATOCRIT 48.4 % (42.0-52.0); HEMOGLOBIN 16.4 gm/dl (14.0-18.0); IMMATURE GRAN ABSOLUTE AUTO 0.02 K/mm3 (0.00-0.05); IMMATURE GRAN PERCENT AUTO 0.3 % (0.0-0.4); LYMPHOCYTES ABSOLUTE AUTO 1.8 K/mm3 (1.0-4.8); LYMPHOCYTES PERCENT AUTO 28.5 % (24.0-44.0); MEAN CORPUSCULAR HEMOGLOBIN 30.9 pg (28.0-32.0); MEAN CORPUSCULAR HGB CONC 33.9 g/dl (32.0-36.0); MEAN CORPUSCULAR VOLUME 91.3 fl (83.0-99.0); MONOCYTES ABSOLUTE AUTO 0.6 K/mm3 (0.0-0.8); MONOCYTES PERCENT AUTO 9.8 % (0.0-8.0); NEUTROPHILS ABSOLUTE AUTO 3.8 K/mm3 (1.8-7.7); NEUTROPHILS PERCENT AUTO 59.8 % (41.0-71.0); PLATELET COUNT,PLT 232 K/mm3 (150-400); WHITE BLOOD CELL COUNT,WBC 6.34 K/mm3 (3.9-11.3)
[2023-08-04 12:47] LABS: A/G RATIO 1.2 (1-2); ALBUMIN 3.8 g/dl (3.4-5.0); ANION GAP 14.4 (5-15); BILIRUBIN TOTAL 0.6 mg/dL (0.2-1.0); BUN/CREATININE RATIO 13.1 (14-18); CALCIUM 9.1 mg/dL (8.5-10.1); CREATININE 1.3 mg/dL (0.7-1.3); EST CRCL DRUG DOSING (CG) 58.86 mL/min; POTASSIUM,K 4.4 mEq/L (3.5-5.1); PROTEIN TOTAL,TP 7.1 g/dl (6.4-8.2)
[2023-08-04 14:18] VITALS: BP 116/87; PULSE 86
== END 2023-08-04 14:18 | disposition home or self-care (01) ==
LOC: JD.ED 11:36
DX: R42 Dizziness and giddiness (principal); Z86.73 Personal history of transient ischemic attack (TIA), and cerebral infarction without residual deficits; Z79.899 Other long term (current) drug therapy; Z79.82 Long term (current) use of aspirin
CPT/HCPCS: 36415; 70450; 80053; 84484; 85025; 93005; 99284; A9270

== ENCOUNTER 2023-11-18 12:35 | Emergency (ER) | payer MEDICARE, BC ==
[2023-11-18] MEDS: HYDROmorphone 1 MG/ML Syringe IM ONE (13:46)
[2023-11-18 16:12] VITALS: BP 125/90; PULSE 61
== END 2023-11-18 15:32 | disposition home or self-care (01) ==
LOC: JD.ED 12:35
DX: M54.50 Low back pain, unspecified (principal); F32.A Depression, unspecified; Z79.82 Long term (current) use of aspirin; Z79.899 Other long term (current) drug therapy
CPT/HCPCS: 73030; 96372; 99283; J1170; 99284

== ENCOUNTER 2024-07-31 16:23 | Emergency (ER) | payer MEDICARE, BC ==
[2024-07-31] MEDS ORDERED: Sodium Chloride 0.9% 10 ML Syringe FLUSH PRN (16:50)
[2024-07-31] MEDS: Ondansetron 4 MG/2 ML SDV IVPUSH ONE (17:01)
[2024-07-31] MEDS: Sodium Chloride 0.9% 1,000 ML IV STA (17:01)
[2024-07-31] MEDS: HYDROmorphone 0.5 MG/0.5 ML Syringe IVPUSH ONE (17:02)
[2024-07-31 17:04] LABS: BASOPHILS PERCENT AUTO 0.4 % (0.0-1.0); EOSINOPHILS ABSOLUTE AUTO 0.1 K/mm3 (0.0-0.4); EOSINOPHILS PERCENT AUTO 0.5 % (0.0-6.0); HEMOGLOBIN 16.5 gm/dl (14.0-18.0); IMMATURE GRAN ABSOLUTE AUTO 0.04 K/mm3 (0.00-0.05); IMMATURE GRAN PERCENT AUTO 0.4 % (0.0-0.4); LYMPHOCYTES ABSOLUTE AUTO 1.5 K/mm3 (1.0-4.8); LYMPHOCYTES PERCENT AUTO 13.5 % (24.0-44.0); MEAN CORPUSCULAR HEMOGLOBIN 29.9 pg (28.0-32.0); MEAN CORPUSCULAR HGB CONC 33.7 g/dl (32.0-36.0); MEAN CORPUSCULAR VOLUME 88.8 fl (83.0-99.0); MEAN PLATELET VOLUME 11.3 fl (9.4-12.4); MONOCYTES PERCENT AUTO 9.6 % (0.0-8.0); NEUTROPHILS ABSOLUTE AUTO 8.1 K/mm3 (1.8-7.7); NEUTROPHILS PERCENT AUTO 75.6 % (41.0-71.0); PLATELET COUNT,PLT 216 K/mm3 (150-400); RED BLOOD CELL COUNT 5.52 M/mm3 (4.52-5.90); WHITE BLOOD CELL COUNT,WBC 10.73 K/mm3 (3.9-11.3)
[2024-07-31 17:17] LABS: A/G RATIO 0.8 (1-2); ALBUMIN 3.6 g/dl (3.4-5.0); ANION GAP 10.9 (5-15); BILIRUBIN TOTAL 0.5 mg/dL (0.2-1.0); BUN/CREATININE RATIO 11.9 (14-18); C-REACTIVE PROTEIN 0.07 mg/dL (<0.30); CALCIUM 8.9 mg/dL (8.5-10.1); CREATININE 1.6 mg/dL (0.7-1.3); EST CRCL DRUG DOSING (CG) 47.15 mL/min; POTASSIUM,K 3.9 mEq/L (3.5-5.1); PROTEIN TOTAL,TP 7.9 g/dl (6.4-8.2)
[2024-07-31] MEDS: Iopamidol 612 MG/ML 100 ML Bottle IVPUSH ONE (17:53)
[2024-07-31] MEDS: Sodium Chloride 0.9% 10 ML Syringe FLUSH ONE (17:53)
[2024-07-31] MEDS: Ketorolac 30 MG/ML SDV IVPUSH ONE (18:24)
[2024-07-31 19:59] LABS: APPEARANCE,URINE CLEAR (Clear); BILIRUBIN,URINE NEGATIVE (Negative); COLOR,URINE YELLOW (Yellow); GLUCOSE,URINE NEGATIVE (Negative); KETONES,URINE NEGATIVE (Negative); LEUKOCYTE ESTERASE,URINE NEGATIVE (Negative); NITRITE,URINE NEGATIVE (Negative); OCCULT BLOOD,URINE 2+ (Negative); PH,URINE 5.5 (5.0-8.0); PROTEIN,URINE NEGATIVE (Negative); UROBILINOGEN,URINE 0.2 (0.2-1.0)
[2024-07-31 20:41] LABS: BACTERIA,URINE FEW /hpf (FEW); MUCUS,URINE FEW /hpf (FEW); SQUAMOUS EPITHELIAL CELLS,UR 0-5 /hpf (0-5); WBC,URINE 0-5 /hpf (0-5)
[2024-07-31] MEDS: Tamsulosin 0.4 MG Cap.ER PO ONE (20:52)
[2024-07-31 21:40] VITALS: BP 140/70; PULSE 69
== END 2024-07-31 20:58 | disposition home or self-care (01) ==
LOC: JD.ED 16:23
DX: N13.2 Hydronephrosis with renal and ureteral calculous obstruction (principal); M19.90 Unspecified osteoarthritis, unspecified site; Z90.49 Acquired absence of other specified parts of digestive tract; Z86.73 Personal history of transient ischemic attack (TIA), and cerebral infarction without residual deficits; Z79.82 Long term (current) use of aspirin; Z79.899 Other long term (current) drug therapy
CPT/HCPCS: 36415; 74177; 80053; 81001; 85025; 86140; 96361; 96374; 96375; 99284; J1171; J1885; J2405; J3490; J7030; Q9967; A9270-GY

== ENCOUNTER 2025-08-25 08:11 | Emergency (ER) | payer MEDICARE, BC ==
[2025-08-25 10:01] LABS: APPEARANCE,URINE CLEAR (Clear); GLUCOSE,URINE NEGATIVE (Negative); OCCULT BLOOD,URINE 2+ (Negative)
[2025-08-25 10:07] LABS: BASOPHILS ABSOLUTE AUTO 0.0 K/mm3 (0.0-0.2); BASOPHILS PERCENT AUTO 0.8 % (0.0-1.0); EOSINOPHILS ABSOLUTE AUTO 0.1 K/mm3 (0.0-0.4); EOSINOPHILS PERCENT AUTO 2.1 % (0.0-6.0); IMMATURE GRAN ABSOLUTE AUTO 0.01 K/mm3 (0.00-0.05); IMMATURE GRAN PERCENT AUTO 0.2 % (0.0-0.4); LYMPHOCYTES ABSOLUTE AUTO 1.6 K/mm3 (1.0-4.8); LYMPHOCYTES PERCENT AUTO 30.5 % (24.0-44.0); MEAN PLATELET VOLUME 11.2 fl (9.4-12.4); MONOCYTES ABSOLUTE AUTO 0.5 K/mm3 (0.0-0.8); MONOCYTES PERCENT AUTO 10.4 % (0.0-8.0); NEUTROPHILS ABSOLUTE AUTO 2.9 K/mm3 (1.8-7.7); NEUTROPHILS PERCENT AUTO 56.0 % (41.0-71.0); NRBC ABSOLUTE 0.00 (0.00-0.02); NRBC PERCENT 0.0 % (0.0-0.2); PLATELET COUNT,PLT 199 K/mm3 (150-400); RED BLOOD CELL COUNT 5.46 M/mm3 (4.52-5.90); WHITE BLOOD CELL COUNT,WBC 5.21 K/mm3 (3.9-11.3)
[2025-08-25 10:21] LABS: EPITHELIAL CELLS,URINE 0-5 /hpf (0-5)
[2025-08-25 10:50] LABS: A/G RATIO 0.8 (1-2); ALANINE AMINOTRANSFERASE,ALT 24.0 U/L (16-63); ASPARTATE AMNIOTRANSFERASE,AST 16.0 U/L (15-37); BILIRUBIN TOTAL 0.5 mg/dL (0.2-1.0); BLOOD UREA NITROGEN,BUN 17.0 mg/dL (7-18); CARBON DIOXIDE,CO2 31.0 mEq/L (21-32); CHLORIDE,CL 105.0 mEq/L (98-107); CREATININE 1.4 mg/dL (0.7-1.3); EST CRCL DRUG DOSING (CG) 53.12 mL/min; ESTIMATED GFR 54.0 mL/min (>60); GLUCOSE RANDOM 103.0 mg/dL (70-99); POTASSIUM,K 4.5 mEq/L (3.5-5.1); PROTEIN TOTAL,TP 7.7 g/dl (6.4-8.2); SODIUM,NA 141.0 mEq/L (136-145)
[2025-08-25] MEDS: Iopamidol 612 MG/ML 100 ML Bottle IVPUSH ONE (11:11)
[2025-08-25 14:05] VITALS: BP 119/94; PULSE 76
== END 2025-08-25 14:11 | disposition home or self-care (01) ==
LOC: JD.ED 08:11
DX: N13.2 Hydronephrosis with renal and ureteral calculous obstruction (principal); I10 Essential (primary) hypertension; K21.9 Gastro-esophageal reflux disease without esophagitis; Z86.73 Personal history of transient ischemic attack (TIA), and cerebral infarction without residual deficits; Z79.899 Other long term (current) drug therapy; Z79.82 Long term (current) use of aspirin
CPT/HCPCS: 36415; 51798; 74177; 80053; 81001; 83690; 85025; 96360; 96361; 99284; J7030; Q9967